=== PATIENT | female | born 1970 | race Two or more races ===

== ENCOUNTER 2021-08-03 14:25 | Outpatient (CLI) | payer OTHER | END 2021-08-03 14:30 | disposition home or self-care (01) | LOC: PPH VACUNA 14:25 | PROVIDERS: ATTEND Emergency Medicine Pediatric Emergency Medicine | DX: Z23 Encounter for immunization (principal) ==

== ENCOUNTER 2022-05-25 07:30 | Inpatient (IN) | payer OTHER ==
[~2022-05-25] VITALS: Ht 165.1 cm; Wt 68.0 kg
[2022-05-26] MEDS ORDERED: LIPITOR20 MG PO (08:56)
[2022-05-26] MEDS ORDERED: TENORMIN50 M1 PO (08:56)
== END 2022-06-02 10:09 | disposition home or self-care (01) | DRG 743 ==
LOC: O/R 05-31 06:08 → OB/GYN 05-31 07:30
PROVIDERS: ADMIT Obstetrics & Gynecology; ATTEND Obstetrics & Gynecology
PROC: 0UB90ZZ Excision of Uterus, Open Approach (ICD-10-PCS; 2022-05-31)
PROC: 0UT90ZZ Resection of Uterus, Open Approach (ICD-10-PCS; principal; 2022-05-31 08:30)
DX: D25.1 Intramural leiomyoma of uterus (principal); N83.292 Other ovarian cyst, left side; N83.11 Corpus luteum cyst of right ovary; N83.291 Other ovarian cyst, right side; Z20.822 Contact with and (suspected) exposure to COVID-19; N83.01 Follicular cyst of right ovary